=== PATIENT | male | born 1995 | race Caucasian/White ===

== ENCOUNTER 2017-11-11 01:06 | Emergency (ER) | payer OTHER ==
[~2017-11-11] VITALS: Ht 188 cm; Wt 79.4 kg
--- NOTE | 2017-11-11 01:06 | NUR ---
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 "I AM ALLERGIC TO PEANUTS AND WHEN WE ATE FOOD THE MENU DID NOT SPECIFY". PT NOTED WITH REDNESS ON FACE AND ARMS WITH HIVES. VSS NAD A/OX4 ABLE TO MAKE NEEDS KNOWN. WILL CONTINUE TO MONITOR FOR ANY CHANGES DURING THE SHIFT.
--- NOTE | 2017-11-11 01:07 | NUR ---
ER AT BEDSIDE
[2017-11-11] MEDS ORDERED: diphenhydrAMINE HCL 50 MG/ML VIAL ONE (01:17)
[2017-11-11] MEDS ORDERED: methylPREDNISolone SOD SUCC 125 MG/2ML VIAL ONE (01:17)
[2017-11-11] MEDS ORDERED: EPINEPHRINE (1:1000) 1 MG/ML AMPUL ONE (01:17)
[2017-11-11] MEDS ORDERED: FAMOTIDINE/PF INJ 20 MG/2 ML VIAL IV ONE ×2 (01:17→01:30)
[2017-11-11] MEDS ORDERED: diphenhydrAMINE HCL 50 MG/ML VIAL IV ONE (01:30)
[2017-11-11] MEDS ORDERED: methylPREDNISolone SOD SUCC 125 MG/2ML VIAL IV ONE (01:30)
[2017-11-11] MEDS ORDERED: EPINEPHRINE (1:1000) MDV 30 MG/30ML VIAL SUBCUT ONE (01:30)
[2017-11-11 03:10] VITALS: BP 137/77
== END 2017-11-11 03:10 | disposition home or self-care (01) ==
LOC: ER 01:09
DX: T78.2XXA Anaphylactic shock, unspecified, initial encounter (principal)
CPT/HCPCS: A4606; J0171; J1200; J2930; J3490; Z7610